=== PATIENT | male | born 1970 | race Caucasian/White ===

== ENCOUNTER 2023-07-08 21:09 | Emergency (ER) | payer BC ==
[~2023-07-08] VITALS: Ht 188 cm; Wt 95.2 kg
[~2023-07-08 21:09] MED LIST: CELE100 PO; CELE200 PO; FENO145 PO; FENO54 PO; HYDACE5 PO; LISI5 PO; LOVA40; OXYC5 PO; PROM25 PO; Prednisone10 MG PO; Zofran4 MG PO
[2023-07-08 21:48] VITALS: BP 133/94
== END 2023-07-08 22:51 | disposition home or self-care (01) ==
LOC: ER 21:09
DX: S61.012A Laceration without foreign body of left thumb without damage to nail, initial encounter (principal); W26.0XXA Contact with knife, initial encounter; Z79.899 Other long term (current) drug therapy; Z79.52 Long term (current) use of systemic steroids; I10 Essential (primary) hypertension; E78.5 Hyperlipidemia, unspecified
CPT/HCPCS: 12032; 90471; 90715; 99282-25; A9270